=== PATIENT | female | born 1975 | race Two or more races ===

== ENCOUNTER 2021-11-21 09:15 | Outpatient (CLI) | payer OTHER ==
[~2021-11-21 09:15] MED LIST: CLARITIN10 M1 PO; FOLIC ACID1 MG PO; INTRINSI B12-F1 EACH PO; LEVSIN/SL0.125 MG SL; LO LOESTRIN FE1 EACH; MACROBID 100 M100 MG PO; PERCOCET 5-3251 EACH PO; SINGULAIR10 MG PO; TOPROL XL25 M1; TYLENOL EXTRA500 MG PO; VIRT-VITE PLUS T5 MG; VIT PO; VITAMINS A-D-E1 EACH PO; ZYRTEC10 MG
== END 2021-11-21 09:25 | disposition home or self-care (01) ==
LOC: LAB 09:15
PROVIDERS: ATTEND Internal Medicine Hematology & Oncology
DX: D50.8 Other iron deficiency anemias (principal); I10 Essential (primary) hypertension; R74.02 Elevation of levels of lactic acid dehydrogenase [LDH]; K76.89 Other specified diseases of liver; D51.1 Vitamin B12 deficiency anemia due to selective vitamin B12 malabsorption with proteinuria; D51.0 Vitamin B12 deficiency anemia due to intrinsic factor deficiency; E03.8 Other specified hypothyroidism; E06.3 Autoimmune thyroiditis; R97.8 Other abnormal tumor markers; R97.0 Elevated carcinoembryonic antigen [CEA]

== ENCOUNTER 2023-06-27 08:53 | Outpatient (CLI) | payer OTHER ==
[2023-06-27 09:50] LABS: HEMATOCRIT 32.9 % (36.0-45.00); HEMOGLOBIN 10.8 g/dL (12.0-15.00); MEAN CELL VOLUME 81.3 fL (80.00-100.00); MEAN CORPUSCULAR HEMOGLOBIN 26.7 pg (27.00-32.0); MEAN CORPUSCULAR HGB CONC 32.9 g/dl (32.0-36.0); PLATELET COUNT 318 K/uL (150-450); RED BLOOD COUNT 4.05 M/uL (4.00-6.00); RED CELL DISTRIBUTION WIDTH 14.9 % (11.5-14.5)
[2023-06-27 10:04] LABS: INR 0.99; PARTIAL THROMBOPLASTIN TIME 32.5 SECONDS (22.0-34.0); PROTHROMBIN TIME 10.4 SECONDS (9.0-11.5)
[2023-06-27 10:18] LABS: COL EPI 122 SECONDS (82-175)
[2023-06-27 10:21] LABS: ALBUMIN 3.9 gm/dL (3.4-5.0); BILIRUBIN TOTAL 0.36 mg/dL (0.3-1.2); CALCIUM 8.8 mg/dL (8.5-10.1); CREATININE SERUM 0.81 mg/dL (0.55-1.02); GFR 76.46; GLOBULINA 3.5 G/DL (2.4-3.5); POTASSIUM 4.35 mEq/L (3.5-5.1); TOTAL PROTEIN 7.4 gm/dL (6.4-8.2)
== END 2023-06-27 08:55 | disposition home or self-care (01) ==
LOC: LAB 08:53
PROVIDERS: ATTEND Internal Medicine Hematology & Oncology
DX: D50.8 Other iron deficiency anemias (principal); D51.3 Other dietary vitamin B12 deficiency anemia; M79.7 Fibromyalgia; U07.1 COVID-19; J45.998 Other asthma

== ENCOUNTER 2024-01-30 14:35 | Outpatient (CLI) | payer OTHER ==
[2024-01-30 15:34] LABS: INR 1.01; PARTIAL THROMBOPLASTIN TIME 32.5 SECONDS (22.0-34.0); PROTHROMBIN TIME 10.6 SECONDS (9.0-11.5)
[2024-01-30 15:38] LABS: COL EPI 80 SECONDS (82-175)
[2024-01-30 15:58] LABS: PT 50:50 10.1 SECONDS (9.7-11.4); PTT 50:50 29.5 SECONDS (22.4-33.0)
== END 2024-01-30 15:06 | disposition home or self-care (01) ==
LOC: LAB 14:35
PROVIDERS: ATTEND Internal Medicine Hematology & Oncology
DX: D50.8 Other iron deficiency anemias (principal); D51.3 Other dietary vitamin B12 deficiency anemia; D73.89 Other diseases of spleen; N80.00 Endometriosis of the uterus, unspecified; M79.7 Fibromyalgia; U07.1 COVID-19; J45.998 Other asthma; I47.10 Supraventricular tachycardia, unspecified; K58.1 Irritable bowel syndrome with constipation

== ENCOUNTER 2024-07-29 10:29 | Outpatient (CLI) | payer OTHER ==
[2024-07-29 11:47] LABS: PARTIAL THROMBOPLASTIN TIME 33.2 SECONDS (22.0-34.0); PROTHROMBIN TIME 10.9 SECONDS (9.0-11.5)
[2024-07-29 11:59] LABS: COL EPI 138 SECONDS (82-175)
[2024-07-29 12:05] LABS: HEMOGLOBIN 12.3 g/dL (12.0-15.00); MEAN CORPUSCULAR HGB CONC 33.4 g/dl (32.0-36.0); PLATELET COUNT 295 K/uL (150-450); RED BLOOD COUNT 3.98 M/uL (4.00-6.00); RED CELL DISTRIBUTION WIDTH 13.1 % (11.5-14.5)
[2024-07-29 12:21] LABS: PT 50:50 10.4 SECONDS (9.7-11.4)
[2024-07-29 12:22] LABS: PTT 50:50 27.5 SECONDS (22.4-33.0)
[2024-07-29 12:27] LABS: % SATURACION 20.5 % (15-50); BILIRUBIN TOTAL 0.55 mg/dL (0.3-1.2); CALCIUM 9.1 mg/dL (8.5-10.1); CREATININE SERUM 0.82 mg/dL (0.55-1.02); FERRITIN 61.3 NG/ML (8-252); GFR 75.05; GLOBULINA 3.2 G/DL (2.4-3.5); POTASSIUM 4.28 mEq/L (3.5-5.1); TOTAL PROTEIN 7.2 gm/dL (6.4-8.2)
[2024-07-29 13:28] LABS: FOLIC ACID 12.34 ng/ml (4.78-20)
[2024-07-31 16:08] LABS: FACTOR VIII ACTIVITY 76 % (56-140); VON WILLERBRAND ACTIVITY 51 % (50-200); VON WILLERBRAND ANTIGEN 73 % (50-200)
== END 2024-07-29 10:30 | disposition home or self-care (01) ==
LOC: LAB 10:29
PROVIDERS: ATTEND Internal Medicine Hematology & Oncology
DX: D50.8 Other iron deficiency anemias (principal); D51.3 Other dietary vitamin B12 deficiency anemia; D73.89 Other diseases of spleen; N80.00 Endometriosis of the uterus, unspecified; M79.7 Fibromyalgia; U07.1 COVID-19; J45.998 Other asthma; I47.19 Other supraventricular tachycardia; K58.1 Irritable bowel syndrome with constipation

== ENCOUNTER 2024-11-23 08:58 | Outpatient (CLI) | payer OTHER ==
[2024-11-25 17:08] LABS: FACTOR VIII ACTIVITY 98 % (56-140); VON WILLERBRAND ACTIVITY 81 % (50-200); VON WILLERBRAND ANTIGEN 74 % (50-200)
== END 2024-11-23 08:59 | disposition home or self-care (01) ==
LOC: LAB 08:58
PROVIDERS: ATTEND Internal Medicine Hematology & Oncology
DX: D68.00 Von Willebrand disease, unspecified (principal); D68.8 Other specified coagulation defects; D50.8 Other iron deficiency anemias; D51.3 Other dietary vitamin B12 deficiency anemia; D73.89 Other diseases of spleen; N80.00 Endometriosis of the uterus, unspecified; M79.7 Fibromyalgia; U07.1 COVID-19; J45.998 Other asthma; I47.10 Supraventricular tachycardia, unspecified; K58.1 Irritable bowel syndrome with constipation